=== PATIENT | female | born 2000 | race Caucasian/White ===

== ENCOUNTER 2023-11-02 16:46 | Emergency (ER) | payer SELFPAY ==
[2023-11-02] MEDS ORDERED: Ketorolac Tromethamine 30 MG (1 mL) VIAL ONE (18:46)
[2023-11-02] MEDS ORDERED: Ondansetron ODT 4 MG TAB ONE (18:47)
[2023-11-02 20:35] LABS: SARS-CoV-2 NAA Rapid Test Not Detected (NotDetected)
== END 2023-11-02 19:05 | disposition home or self-care (01) ==
LOC: ERS 16:46
DX: J03.90 Acute tonsillitis, unspecified (principal); R11.0 Nausea; F17.290 Nicotine dependence, other tobacco product, uncomplicated
CPT/HCPCS: 87081; 87430; 96372; 99284; J1885; Q0162

== ENCOUNTER 2023-11-23 19:20 | Emergency (ER) | payer BC, SELFPAY | END 2023-11-23 21:43 | disposition home or self-care (01) | LOC: ERS 19:20 | DX: S60.111A Contusion of right thumb with damage to nail, initial encounter (principal); F17.290 Nicotine dependence, other tobacco product, uncomplicated; W23.1XXA Caught, crushed, jammed, or pinched between stationary objects, initial encounter ==